=== PATIENT | female | born 1990 | race Caucasian/White ===

== ENCOUNTER 2018-02-01 12:24 | Emergency (ER) | payer SELFPAY ==
[2018-02-01] MEDS ORDERED: NS 1,000 ML IV ONE (12:41)
--- NOTE | 2018-02-01 12:59 | EDPHY ---
H & P Stated Complaint: participated in [place] yesterday feels depleted wants a dr' s excuse forr Time Seen by Provider: 02/01/18 12:41 HPI/ROS: HPI: This is a 27-year-old female who presents with Chief Complaint: participated in [place] yesterday feels depleted wants a dr's excuse forr Location: Body Quality:"Feels depleted" Duration: Since yesterday Signs and Symptoms: no shortness of breath at rest, no shortness of breath on exertion, no cough, no chest pain, no palpitations, no lower extremity edema, no wheezing, no orthopnea, no paroxysmal nocturnal dyspnea, no fever, no injury/ trauma, no hemoptysis, no carpal pedal spasms Timing: Acute Severity: Moderate to severe Context: Patient participated in the [employer] yesterday and finished around midnight. She reports that it took her over 16 hr to complete the race. She noted that during the race she vomited several times and had several loose stools. She flew back at 3:00 a.m. To [place], [place]. She reports that she feels "tired and depleted." She reports that she is eating and drinking normally today. She denies any muscle cramps or decreased range of motion. She is scheduled to leave this evening on a mission trip out of the country and does not feel like she will be able to participate. Modifying Factors: Comment: ROS: A comprehensive 10 system review of systems is otherwise negative aside from elements mentioned in the history of present illness. MEDICAL/SURGICAL/SOCIAL HISTORY: Medical history: Generally healthy. Does not take any regular medications. LMP 1-2 weeks ago. Surgical history: Denies Social history: Employed. CONSTITUTIONAL: Extremely polite and cooperative young adult white female, awake and alert, no obvious distress HEENT: Atraumatic and normocephalic, PERRL, EOMI. Nares patent; no rhinorrhea; no nasal mucosal edema. Tympanic membranes clear. Oropharynx clear, no exudate and moist pink mucosa. Airway patent. No lymphadenopathy. No meningismus. Cardiovascular: Normal S1/S2, regular rate, regular rhythm, without murmur rub or gallop. PULMONARY/CHEST: Symmetrical and nontender. Clear to auscultation bilaterally. Good air movement. No accessory muscle usage. ABDOMEN: Soft, nondistended, nontender, no rebound, no guarding, no peritoneal signs, no masses or organomegaly. No CVAT. EXTREMITIES: 2/2 pulses, strength 5/5, no deformities, no clubbing, no cyanosis or edema. Negative Homans sign. NEUROLOGICAL: no focal neuro deficits. GCS 15. SKIN: Warm and dry, no erythema. no rash. Good capillary refill. Source: Patient Exam Limitations: No limitations - Personal History LMP (Females 10-55): 15-21 Days Ago Current Tetanus Diphtheria and Acellular Pertussis (TDAP): Yes - Medical/Surgical History Hx Asthma: No Hx Chronic Respiratory Disease: No Hx Diabetes: No Hx Cardiac Disease: No Hx Renal Disease: No Hx Cirrhosis: No Hx Alcoholism: No Hx HIV/AIDS: No Hx Splenectomy or Spleen Trauma: No Other PMH: denies - Social History Smoking Status: Never smoked Constitutional: Initial Vital Signs Temperature (C) 36.6 C 02/01/18 12:27 Heart Rate 75 02/01/18 12:27 Respiratory Rate 18 02/01/18 12:27 Blood Pressure 112/67 02/01/18 12:27 O2 Sat (%) 98 02/01/18 12:27 O2 Delivery Mode Room Air Allergies/Adverse Reactions: No Known Allergies Allergy (Unverified 02/01/18 12:27) Home Medications: Medication Instructions Recorded NK [No Known Home Meds] 02/01/18 Medical Decision Making ED Course/Re-evaluation: Vital signs reviewed and stable upon arrival. IV access and laboratory studies ordered. Given 1 L normal saline Labs reviewed. No signs of leukocytosis/anemia/platelet dysfunction/MARCELINO/ electrolyte imbalance. CK is a 1000 which is likely due to running a marathon. Advised to repeat value in 3 days. Push fluids. This patient was seen under the supervision of my secondary supervising physician. I evaluated care for this patient independently. Discussed this patient with Dr. Virk. Differential Diagnosis: Differential diagnosis includes but is not limited to hyponatremia, hypokalemia , acute kidney injury, rhabdomyolysis. - Data Points Laboratory Results: Laboratory Results 02/01/18 12:45 02/01/18 12:45 02/01/18 02/01/18 02/01/18 12:45 12:45 12:45 WBC RBC Hgb Hct MCV MCH MCHC RDW Plt Count MPV Neut % (Auto) Lymph % (Auto) Harvey % (Auto) Eos % (Auto) Baso % (Auto) Nucleat RBC Rel Count Absolute Neuts (auto) Absolute Lymphs (auto) Absolute Monos (auto) Absolute Eos (auto) Absolute Basos (auto) Absolute Nucleated RBC Immature Gran % Immature Gran # Sodium 138 mEq/L mEq/L (135-145) Potassium 3.6 mEq/L mEq/L (3.3-5.0) Chloride 104 mEq/L mEq/L (97-110) Carbon Dioxide 24 mEq/l mEq/l (22-31) Anion Gap 10 mEq/L mEq/L (6-14) BUN 15 mg/dL mg/dL (7-23) Creatinine 0.7 mg/dL mg/dL (0.6-1.0) Estimated GFR > 60 Glucose 92 mg/dL mg/dL (70-100) Calcium 9.4 mg/dL mg/dL (8.5-10.4) Magnesium 2.1 mg/dL mg/dL (1.6-2.3) Creatine Kinase 1012 IU/L H IU/L (0-156) CK-MB (CK-2) Fraction Pending CK-MB (CK-2) % Pending Creatine Kinase Interp Pending Beta HCG, Qual NEGATIVE 02/01/18 12:45 WBC 10.29 10^3/uL H 10^3/uL (3.80-9.50) RBC 4.24 10^6/uL 10^6/uL (4.18-5.33) Hgb 12.8 g/dL g/dL (12.6-16.3) Hct 37.7 % L % (38.0-47.0) MCV 88.9 fL fL (81.5-99.8) MCH 30.2 pg pg (27.9-34.1) MCHC 34.0 g/dL g/dL (32.4-36.7) RDW 12.7 % % (11.5-15.2) Plt Count 232 10^3/uL 10^3/uL (150-400) MPV 9.2 fL fL (8.7-11.7) Neut % (Auto) 61.8 % % (39.3-74.2) Lymph % (Auto) 27.4 % % (15.0-45.0) Harvey % (Auto) 8.9 % % (4.5-13.0) Eos % (Auto) 0.9 % % (0.6-7.6) Baso % (Auto) 0.6 % % (0.3-1.7) Nucleat RBC Rel Count 0.0 % % (0.0-0.2) Absolute Neuts (auto) 6.36 10^3/uL 10^3/uL (1.70-6.50) Absolute Lymphs (auto) 2.82 10^3/uL 10^3/uL (1.00-3.00) Absolute Monos (auto) 0.92 10^3/uL H 10^3/uL (0.30-0.80) Absolute Eos (auto) 0.09 10^3/uL 10^3/uL (0.03-0.40) Absolute Basos (auto) 0.06 10^3/uL 10^3/uL (0.02-0.10) Absolute Nucleated RBC 0.00 10^3/uL 10^3/uL (0-0.01) Immature Gran % 0.4 % % (0.0-1.1) Immature Gran # 0.04 10^3/uL 10^3/uL (0.00-0.10) Sodium Potassium Chloride Carbon Dioxide Anion Gap BUN Creatinine Estimated GFR Glucose Calcium Magnesium Creatine Kinase CK-MB (CK-2) Fraction CK-MB (CK-2) % Creatine Kinase Interp Beta HCG, Qual Medications Given: Discontinued Medications Sodium Chloride (Ns) 1,000 mls @ 0 mls/hr IV ONCE ONE; Wide Open PRN Reason: Protocol Stop: 02/01/18 12:42 Last Admin: 02/01/18 12:51 Dose: 1,000 mls Departure - Departure Disposition: Home, Routine, Self-Care Clinical Impression: Fatigue due to excessive exertion Qualifiers: Encounter type: initial encounter Qualified Code(s): T73.3XXA - Exhaustion due to excessive exertion, initial encounter Condition: Good Instructions: Fatigue (ED) Additional Instructions: Rest as much as possible until you are feeling better. Consume a minimum of 8-10 glasses of water or electrolyte fluid replacement drinks that include Gatorade, Powerade, Pedialyte. Repeat CPK level in 3 days. Return at once for any worsening symptoms or concerns. Referrals: [facility],. [Clinic] - As per Instructions Stand Alone Forms: Airline Excuse, Work Excuse
[2018-02-01 13:05] LABS: PLATELET COUNT 232 10^3/uL (150-400)
[2018-02-01 14:15] VITALS: BP 108/69
[2018-02-01 14:19] LABS: CREATINE KINASE 1012 IU/L (0-156)
== END 2018-02-01 14:15 | disposition home or self-care (01) ==
DX: R53.83 Other fatigue (principal); T73.3XXA Exhaustion due to excessive exertion, initial encounter; Y93.02 Activity, running